=== PATIENT | female | born 1995 | race Caucasian/White ===

== ENCOUNTER 2020-10-15 11:33 | Outpatient (CLI) | payer BC, SELFPAY ==
[2020-10-15 12:40] LABS: Thyroid Stimulating Hormone Reflex 0.68 u/IU/mL (0.36-3.74)
== END 2020-10-15 11:34 | disposition home or self-care (01) ==
LOC: CHSLAB 11:36
PROVIDERS: PCP Nurse Practitioner Family; Visit Provider Nurse Practitioner Family
DX: E03.9 Hypothyroidism, unspecified (principal)
CPT/HCPCS: 36415; 84443

== ENCOUNTER 2021-02-18 23:53 | Emergency (ER) | payer OTHER, SELFPAY ==
--- NOTE | ~2021-02-18 | CT_ITS ---
EXAMINATION: CT brain wo con DATE: 02/19/2021 01:52 INDICATION: Confusion TECHNIQUE: Computed tomography (CT) of the head was performed without intravenous contrast. The mA wa s adjusted according to patient size. Iterative reconstruction technique was employed. Exam dose: 68 1.00 mGy-cm total exam DLP. COMPARISON: None FINDINGS: No intracranial mass lesion or hemorrhage or cerebrovascular accident. Normal martinez-white ma tter differentiation. Normal ventricular size. No midline shift or mass effect effect. No subdural or epidural hematoma. There is polyp or mucous attention cyst along the posterior medial wall of the left maxillary sinus. The included paranasal sinuses and the mastoid air cells are otherwise normally developed and aerated . No fracture or bone destruction of the cranial vault. IMPRESSION: No significant intracranial abnormality Reviewed, dictated and finalized at Location [facility]. Reviewed, dictated and finalized at location A.
[2021-02-19] VITALS: BP 117/77; PULSE 90; RESP 18; TEMP 36.3; O2SAT 99
--- NOTE | 2021-02-19 00:08 | ECG_ITS ---
Measurements Intervals [place] Rate: 89 P: 70 MN: 148 QRS: 48 QRSD: 105 T: 41 QT: 373 QTc: 456 Interpretive Statements SINUS RHYTHM NORMAL ECG Electronically Signed On 02-19-2021 8:06:23 CDT by Estiven Hernández D.O.
[2021-02-19 00:24] LABS: Basophils Absolute Auto 0.03 K/mm3 (0.00-0.10); Basophils Percent Auto 0.3 % (0.0-1.0); Eosinophils Absolute Auto 0.14 K/mm3 (0.02-0.50); Eosinophils Percent Auto 1.6 % (1.0-6.0); Hematocrit 37.7 % (35.0-49.0); Hemoglobin 12.5 g/dL (12.0-15.0); Immature Granulocyte Absolute 0.03 K/mm3 (0.00-0.00); Immature Granulocyte Percent A 0.3 % (0.0-0.0); Lymphocytes Absolute Auto 2.57 K/mm3 (1.10-4.50); Lymphocytes Percent Auto 29.2 % (18.0-42.0); Mean Corpuscular HGB Conc 33.2 g/dL (32.0-36.0); Mean Corpuscular Volume 90.4 fL (78.0-102.0); Mean Platelet Volume 10.1 fl (9.2-11.8); Monocytes Absolute Auto 0.71 K/mm3 (0.10-0.90); Monocytes Percent Auto 8.1 % (2.0-11.0); Neutrophils Absolute Auto 5.3 K/mm3 (1.7-7.2); Neutrophils Percent Auto 60.5 % (50.0-70.0); Platelet Count Result 252 K/mm3 (150-420); Red Blood Count 4.17 M/mm3 (4.20-5.40); Red Cell Distribution Width 11.8 % (11.6-14.4); White Blood Count 8.8 K/mm3 (4.8-10.8)
[2021-02-19 00:47] LABS: Alanine Aminotransferase 27 U/L (14-59); Alkaline Phosphatase 56 U/L (46-116); Anion Gap 12 mmol/L (8-16); Aspartate Amino Transferase 16 U/L (15-37); Bilirubin,Total 0.5 mg/dL (0.00-1.00); Blood Urea Nitrogen 7 mg/dL (7-18); Carbon Dioxide 25 mmol/L (21-32); Chloride 105 mmol/L (98-108); Estimated CRCL calculation 64 ml/min; Estimated Glomerular Filt Rate > 60; Glucose 102 mg/dL (70-99); Osmolality Calculated 292 mOsm/kg (285-295); Potassium 3.5 mmol/L (3.5-5.1); Salicylate 0.3 mg/dL (2.8-20.0); Sodium 142 mmol/L (136-145); Thyroid Stimulating Hormone 2.35 uIU/mL (0.36-3.74); Total Protein 7.9 g/dL (6.4-8.2)
[2021-02-19 00:48] LABS: Acetaminophen < 2 ug/mL (10-30); Ethanol < 3 mg/dL (0-6)
[2021-02-19 01:20] LABS: Add Urine Microscopic? NO; Appearance Urine Clear (Clear); Bilirubin Urine Negative (Negative); Blood Urine Negative (Negative); Color Urine Light Yellow (Yellow); Glucose Urine UA Negative (Negative); Ketones Urine Negative (Negative); Leukocyte Esterase Ur Negative LEU/UL (Negative); Nitrate Urine Negative (Negative); Protein Urine Negative (Negative); Urobilinogen Urine 0.2 mg/dL (0.2-1.0)
[2021-02-19 01:24] LABS: Pregnancy On Board Control Positive; Urine Pregnancy Test Negative
[2021-02-19 01:26] LABS: Amphetamine Screen Urine Negative (Negative); Barbiturate Screen Urine Negative (Negative); Benzodiazepines Screen Urine Negative (Negative); Cannabinoid Screen Urine Negative (Negative); Cocaine Screen Urine Negative (Negative); Methadone Screen Urine Negative (Negative); Opiate Screen Urine Negative (Negative); Phencyclidine Screen Urine Negative (Negative)
--- NOTE | 2021-02-19 01:53 | ED.PSYCH ---
HPI - Psych General Chief Complaint: Psychiatric Symptoms <[place] Ken[place] MD - Last Filed: 02/19/21 07:29> Stated Complaint: Suicidal Ideations <L[place] Ken[place] MD - Last Filed: 02/19/21 07:29> Time Seen by Provider: 02/19/21 01:54 <[place] Ken[place] MD - Last Filed: 02/19/21 07:29> Source: patient and EMS <[place] MD - Last Filed: 02/19/21 07:29> Mode of arrival: EMS <[place] MD - Last Filed: 02/19/21 07:29> Limitations: no limitations <[place] MD - Last Filed: 02/19/21 07:29> History of Present Illness HPI Narrative: 25-year-old woman with history of schizoaffective disorder brought to the emergency department by EMS after she was found wandering aimlessly of the local gas station. EMS stated that she had suicidal ideation but the patient denies it vehemently. She states that she is under the influence of no drugs or alcohol and has had no head injury. She has had psych admissions in the past. Patient states that she was evicted from her home today and found herself several times lost and not knowing where she was. She states that she has family in the [place]. <[place] Ken[place] MD - Last Filed: 02/19/21 07:29> MD complaint: feels depressed <[place] Ken[place] MD - Last Filed: 02/19/21 07:29> Onset (ago): hour(s) <[place] Ken[place] MD - Last Filed: 02/19/21 07:29> Duration: constant <[place] MD - Last Filed: 02/19/21 07:29> History of same: No <[place] MD - Last Filed: 02/19/21 07:29> Relieving factors: none <[place] MD - Last Filed: 02/19/21 07:29> Exacerbating factors: none <[place] MD - Last Filed: 02/19/21 07:29> Context: significant life stressor <[place] MD - Last Filed: 02/19/21 07:29> Associated psychiatric symptoms: depression and suicidal ideation <[place] MD - Last Filed: 02/19/21 07:29> Associated symptoms: denies other symptoms <[place] Ken[place] MD - Last Filed: 02/19/21 07:29> Treatments prior to arrival: none <[place] Ken[place] MD - Last Filed: 02/19/21 07:29> Related Data Home Medications: Home Medications Medication Instructions Recorded Confirmed quetiapine 150 mg tablet,extended 150 mg PO DAILY tablet 02/21/20 02/19/21 release 24 hr escitalopram oxalate 10 mg tablet 10 mg PO DAILY 10/09/20 02/19/21 aripiprazole 30 mg PO DAILY 02/19/21 02/19/21 lithium carbonate 450 mg PO DAILY 02/19/21 02/19/21 norethindrone ac-eth estradiol 1 tablet PO DAILY 02/19/21 02/19/21 [Microgestin 08/01 ()] trazodone 100 mg PO HS 02/19/21 02/19/21 <[place] MD - Last Filed: 02/19/21 07:29> Allergies/Adverse Reactions: Allergies Allergy/AdvReac Type Severity Reaction Status Date / Time aluminum Allergy Mild rash Verified 08/14/20 13:09 <[place] MD - Last Filed: 02/19/21 07:29> Review of Systems Review of Systems: All systems reviewed & are unremarkable except as noted in HPI and below <[place] Ken[place] MD - Last Filed: 02/19/21 07:29> Constitutional: Constitutional: Denies chills and Denies fever(s) <[place] Ken[place] MD - Last Filed: 02/19/21 07:29> Eyes: Eyes: Denies change in vision and Denies photophobia <[place] Ken[place] MD - Last Filed: 02/19/21 07:29> ENT: Denies nasal congestion and Denies sore throat <[place] Ken[place] MD - Last Filed: 02/19/21 07:29> Cardiovascular: Cardiovascular: Denies chest pain and Denies radiating jaw, neck or arm pain <[place] Ken[place] MD - Last Filed: 02/19/21 07:29> Respiratory: Respiratory: Denies cough and Denies dyspnea <[place] Ken[place] MD - Last Filed: 02/19/21 07:29> Gastrointestinal: Gastrointestinal: Denies diarrhea and Denies vomiting <Laek Kenyon MD - Last Filed: 02/19/21 07:29> Genitourinary: Genitourinary: Denies hematuria, Denies nocturia and Denies dysuria <[place]
--- NOTE | 2021-02-19 03:08 | PC.NURSE ---
Pt is restless in room, unable to sleep, pacing at times and then back to bed. Explained to pt we are awaiting Dane from [facility] for evaluation.
[2021-02-19 03:12] VITALS: BP 114/73; PULSE 74; RESP 20; O2SAT 97
[2021-02-19] MEDS: LORazepam (*CRX) 0.5 MG TABLET PO (06:08)
[2021-02-19 06:38] LABS: SARS-CoV-2 Ag Negative (Negative)
--- NOTE | 2021-02-19 07:11 | PC.NURSE ---
Sitter at bedside as per protocol. Report to
--- NOTE | 2021-02-19 07:30 | PC.NURSE ---
Pt pacing around room, pt getting on and off the stretcher, pt restless.
--- NOTE | 2021-02-19 08:43 | PC.NURSE ---
[facility] working on trying to get pt a bed at their facility. [place] called to get more information.
--- NOTE | 2021-02-19 08:45 | PC.NURSE ---
Pt eating breakfast tray
[2021-02-19 09:02] VITALS: BP 117/78; PULSE 90; RESP 18; O2SAT 98
--- NOTE | 2021-02-19 09:19 | PC.NURSE ---
pt to be accepted to [facility] for further psych treatment per Q at [facility].
[2021-02-19 09:45] VITALS: RESP 16; O2SAT 98
== END 2021-02-19 10:00 ==
PROVIDERS: Emergency Provider Emergency Medicine; PCP Nurse Practitioner Family
DX: F25.9 Schizoaffective disorder, unspecified (principal); F41.9 Anxiety disorder, unspecified; Z20.822 Contact with and (suspected) exposure to COVID-19
CPT/HCPCS: 36415; 70450; 80053; 80307; 81003; 81025; 84443; 85025; 87426; 93005; 99285; A9270; C9803

== ENCOUNTER 2021-12-04 15:47 | Outpatient (CLI) | payer OTHER, SELFPAY ==
[2021-12-04 16:49] LABS: Thyroid Stimulating Hormone Reflex 1.14 u/IU/mL (0.36-3.74)
== END 2021-12-04 15:48 | disposition home or self-care (01) ==
LOC: CHSLAB 15:51
PROVIDERS: PCP Nurse Practitioner Family; Visit Provider Nurse Practitioner Family
DX: E03.9 Hypothyroidism, unspecified (principal)
CPT/HCPCS: 36415; 84443

== ENCOUNTER 2024-05-27 08:26 | Outpatient (NON) | payer MEDICARE, SELFPAY ==
[2024-05-27 08:42] LABS: Add Urine Microscopic? NO; Appearance Urine Clear (Clear); Bilirubin Urine Negative (Negative); Blood Urine Negative (Negative); Color Urine Light Yellow (Yellow); Glucose Urine UA Negative (Negative); Ketones Urine Negative (Negative); Leukocyte Esterase Ur Negative LEU/UL (Negative); Nitrate Urine Negative (Negative); Protein Urine Negative (Negative); Specific Grav Ur <= 1.005 (1.010-1.020); Urobilinogen Urine 0.2 mg/dL (0.2-1.0); pH Urine 6.5 (5.0-8.0)
== END 2024-05-27 08:27 | disposition home or self-care (01) ==
LOC: CHSLAB 08:28
PROVIDERS: PCP Nurse Practitioner Family; Visit Provider Nurse Practitioner Family
DX: Z87.898 Personal history of other specified conditions (principal)
CPT/HCPCS: 81003

== ENCOUNTER 2024-12-20 11:00 | Outpatient (NON) | payer MEDICARE, SELFPAY ==
--- NOTE | 2024-12-20 | CY_PTH ---
PATIENT: Kirsty Dyer LOC: [facility] U#:[id number] AGE/SX: 29/F ROOM: RE12/20/[address]: Na Trujillo NP : 1995 BED: DIS: 12/20/2024 SPEC #: [id number] RECD: 12/20/24 13:31 STATUS: SARAH MORENO #: [id number] YADIRA: 12/20/24 00:[address]: Na Trujillo DEPT: [facility] Cytology RECD BY: Karina Donahue MLT, ([facility]) Tissues: A - Pap Smear Procedures: Pap Smear
--- OUTSIDE RECORDS SUMMARY | 2024-12-20 12:23 | XMS_ITS | Referral Summary ---
Author Organization [facility] Address [address] [place] [address] Care Team Providers Care Associate Professor Of Management Name Role Phone Na Trujillo NP Primary Care Provider [phone] Encounters Date Type Department Care Team Description 11/15/2024 3:00 PM CDT Office Visit [facility]ient Care at [address] [address] Melodie Hansen PA Milia (Primary Dx) from Last 3 Months Allergies Active Allergy Reactions Criticality Noted Date Comments Aluminum Rash,Hives Medium 08/09/2018 Sulfa Rash Medium 11/15/2024 Medications No known medications Active Problems Problem Noted Date Diagnosed Date Epistaxis 02/09/2013 Social History Tobacco Use Types Packs/Day Years Used Date Smoking Tobacco: Never Assessed Comments Unknown Sex and Gender Information Value Date Recorded Sex Assigned at Not on file 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 Gender Identity Not on file Sexual Orientation Not on file Last Filed Vital Signs Vital Sign Reading Time Taken Comments Blood Pressure 100/66 11/15/2024 2:53 PM CDT Pulse 90 11/15/2024 2:53 PM CDT Temperature 37.1 C (98.8 F) 11/15/2024 2:53 PM CDT Respiratory Rate 20 11/15/2024 2:53 PM CDT Oxygen Saturation 98% 11/15/2024 2:53 PM CDT Inhaled Oxygen Concentration - - Weight 92.1 kg (203 lb 1.6 oz) 11/15/2024 2:53 P M CDT Height 167.6 cm (5' 6) 03/29/2013 9:13 AM CDT Body Mass Index - - Plan of Treatment Not on file Insurance MEDICARE IDPA AETNA [id number] [place] Care Teams Associate Professor Of Management Relationship Specialty Start Date End Date Na Trujillo NP [address] [place] [address] PCP - General Nurse Practitioner 08/06/22
--- OUTSIDE RECORDS SUMMARY | 2024-12-20 12:23 | XMS_ITS | Clinical Summary ---
Author Organization [facility] Address [address] [place] [address] Care Team Providers Care System Support Developer Name Role Phone Na Trujillo NP Primary Care Provider [phone] Allergies Active Allergy Reactions Criticality Noted Date Comments Aluminum Rash,Hives Medium 08/09/2018 Sulfa Rash Medium 11/15/2024 Medications No known medications Active Problems Problem Noted Date Diagnosed Date Epistaxis 02/09/2013 Encounters Date Type Department Care Team Description 11/15/2024 3:00 PM CDT Office Visit [facility] Convenient Care at [address] [address] Melodie Hansen PA Milia (Primary Dx) from Last 3 Months Social History Tobacco Use Types Packs/Day Years Used Date Smoking Tobacco: Never Assessed Comments Unknown Sex and Gender Information Value Date Recorded Sex Assigned at Not on file 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 Gender Identity Not on file Sexual Orientation Not on file Obstetrics History Last Filed Vital Signs Vital Sign Reading [...] Mass Index - - Plan of Treatment Health Maintenance Due Date Last Done Comments Cervical Cancer Screening 1996 Depression Screening 1996 Hepatitis C Screening 1996 Hepatitis B Screening 2014 Regular Well Visit/Exam 18-64 2014 Covid-19 Vaccine ( season) 2024 09/10/2021, 02/14/2021, 01/24/2021 Influenza Vaccine (Season Ended) 2025 04/22/2022, 04/24/2021, 04/30/2020, Additional history exists DTaP/Tdap/Td Vaccine (3 - Td or Tdap) 10/09/2030 10/09/2020, 08/23/2008 HPV Vaccines Completed 11/23/2009, 01/11, 08/23/2008 Varicella Vaccines Completed 11/23/2009, 02/05/2009 Pneumococcal vaccine <65 Aged Out No longer eligible based on patient's age to complete this topic Insurance MEDICARE IDCA AENA [facility] Care Teams System Support Developer Relationship Specialty Start Date End Date Na Trujillo NP [address] [place] [address] PCP - General Nurse Practitioner 08/06/22
--- OUTSIDE RECORDS SUMMARY | 2024-12-20 12:23 | XMS_ITS | Clinical Summary ---
Author Organization [facility] Address [address] [place] [address] Care Team Providers Care Cw Operator Name Role Phone Mana Espinoza MD Primary Care Provider [phone] Source Comments [facility],non-owned Affiliates and Associated Physician Practices is amultiple site organization consisting of ambulatory clinics and hospital sitesin [place], [place], [place] and [place]. This disclosure is being madepursuant to the Care Everywhere program and may not contain all information available regarding this patient. Last updated 18.[facility] Allergies Active Allergy Reactions Criticality Noted Date Comments Aluminum Rash Medium 10/11/2019 Medications * This document contains information received from the source organization and may not represent a complete record from that organization. * Be aware that medications may not be up to date on this document. Alwaysverify current medications with the patient. Norethindrone Acet-Ethinyl Est (NANNETTE 08/01 PO)Indications:c ontraception Active OXcarbazepine (TRILEPTAL) 150 MG tabletIndication s:Bipolar disorder Take 1 tablet by mouth 2 times daily Reasons: Bipolar disorder 60 tablet 1 0 Active traZODone (DESYREL) 100 MG tabletIndication s:Insomnia Take 1 tablet by mouth nightly as needed for Insomnia Reasons: Trouble Sleeping 30 tablet 1 0 Active ARIPiprazole (ABILIFY) 15 MG tabletIndication s:Mixed Bipolar Affective Disorder Take 1 tablet by mouth at bedtime Reasons: MIXED BIPOLAR AFFECTIVE DISORDER 30 tablet 1 0 Active levothyroxine (SYNTHROID) 75 MCG tabletIndication s:Hypothyroidism Take 1 tablet by mouth once daily Reasons: Underactive Thyroid 30 tablet 1 0 Active clotrimazole (LOTRIMIN AF) 1 % creamIndications :Mucocutaneous Candidiasis Apply to affected area 2 times daily Reasons: [place]ena Infection of Skin and Mouth or Vagina 28 g 0 Active Active Problems Problem Noted Date Diagnosed Date Schizoaffective disorder, bipolar type 0 Deviated nasal septum 07/12/2015 Allergic rhinitis 07/12/2015 Family History Medical History Relation Name Comments Anxiety Disorder Father Asthma Father Depression Father Eczema Father Mental Illness Father Anxiety Disorder Mother Cancer Mother Depression Mother Heart Disease Mother Mental Illness Mother Anxiety Disorder Sister Depression Sister Mental Illness Sister Relation Name Status Comments Father Mother Sister Social History Tobacco Use Types Packs/Day Years Used Date Smoking Tobacco: Never Smokeless Tobacco: Never Alcohol Use Standard Drinks/Week Comments Not Currently 0 (1 standard drink = 0.6 oz pur e alcohol) Comments No Sex and Gender Information Value Date Recorded Sex Assigned at Not on file 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 Gender Identity Not on file Sexual Orientation Not on file Last Filed Vital Signs Vital Sign Reading Time Taken Comments Blood Pressure 120/72 10/21/2019 8:52 AM CDT Pulse 90 10/21/2019 8:52 AM CDT Temperature 36.3 C (97.3 F) 10/21/2019 8:52 AM CDT Respiratory Rate 16 10/21/2019 8:52 AM CDT Oxygen Saturation 95% 10/21/2019 8:52 AM CDT Inhaled Oxygen Concentration - - Weight 72.6 kg (160 lb) 10/18/2019 9:58 AM CDT Height 165.1 cm (5' 5) 10/12/2019 10:45 AM CDT Body Mass Index 26.63 10/12/2019 10:45 AM CDT Plan of Treatment Health Maintenance Due Date Last Done Comments HIV SCREENING 2011 HEPATITIS C SCREENING 05/24/2014 DTAP/TDAP/TD VACCINES (1 - Tdap) 2015 HEPATITIS B VACCINE (1 of 3 - 19+ 3-dose series) 2015 COVID-19 VACCINE (2023-2 5 season) 2024 INFLUENZA VACCINE (Season Ended) 2025 05/04/20 17 ZOSTER VACCINE (1 of 2) 2046 HIB VACCINE Aged Out No longer eligi ble based on patient's age to complete this topic HPV VACCINE Aged Out No longer eligi ble based on patient's age to complete this topic MENINGOCOCCAL (Group B) VACC INE SHARED DECISION-MAKING Aged Out No longer eligibl e based on patient's age to complete this topic MENINGOCOCCAL GROUPS A/C/Y/W VACCINE Aged Out No longer eligible b ased on patient's age to complete this topic PNEUMOCOCCAL VACCINE Aged Out No long er eligible based on patient's age to complete this topic Insurance ANTHEM ANTHEM Advance Directives * Full Code (Latest Code Status on File) Date Activated Date Inactivated Comments 10/12/2019 8:20 AM 10/21/2019 3:16 PM Care Teams Cw Operator Relationship Specialty Start Date End Date Mana Espinoza MD [address] [place] [address] PCP - General 05/14/15
== END 2024-12-20 11:01 | disposition home or self-care (01) ==
LOC: CHSLAB 11:02
PROVIDERS: PCP Nurse Practitioner Family; Visit Provider Nurse Practitioner Family
DX: Z12.4 Encounter for screening for malignant neoplasm of cervix (principal); Z11.8 Encounter for screening for other infectious and parasitic diseases
CPT/HCPCS: 87491; 87591; 88175; G0145

== ENCOUNTER 2024-12-28 13:52 | Outpatient (CLI) | payer MEDICARE, MEDICAID, SELFPAY ==
--- NOTE | ~2024-12-28 | US_ITS ---
EXAM: PELVIC ULTRASOUND HISTORY: N91.2 - Amenorrhea, unspecified COMPARISON: None. FINDINGS: UTERUS: 7.0 x 3.4 x 2.3 cm. The uterus is anteverted and anteflexed. The endometrial complex measures 10.7 mm. The myometrium is heterogeneous in echogenicity. RIGHT OVARY: Despite prolonged interrogation the right ovary was not visualized LEFT OVARY: Despite prolonged interrogation, the left ovary was not visualized. Trace free fluid is identified within the left adnexa IMPRESSION: Heterogeneity of the myometrium suggesting adenomyosis. Trace free fluid within the left adnexa. Despite prolonged interrogation, neither ovary was visualized. Reviewed, dictated and finalized at location A.
[2024-12-28 14:56] LABS: Free T4 Free Thyroxine 0.94 ng/dL (0.78-2.19)
[2024-12-28 15:10] LABS: Thyroid Stimulating Hormone 0.697 uIU/mL (0.465-4.680)
--- OUTSIDE RECORDS SUMMARY | 2024-12-28 15:41 | XMS_ITS | Referral Summary ---
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
--- OUTSIDE RECORDS SUMMARY | 2024-12-28 15:41 | XMS_ITS | Clinical Summary ---
Author Organization [facility] Address [address] [place] [address] Care Team Providers Care Instrumentation Supervisor Name Role Phone Na Trujillo NP Primary Care Provider [phone] Allergies Active Allergy Reactions Criticality Noted Date Comments Aluminum Rash,Hives Medium 08/09/2018 Sulfa Rash Medium 11/15/2024 Medications No known medications Active Problems Problem Noted Date Diagnosed Date Epistaxis 02/09/2013 Encounters Date Type Department Care Team Description 11/15/2024 3:00 PM CDT Office Visit [facility] Convenient Care at [address] [address] Melodie Hansen PA Milia (Primary Dx) from Last 3 Months Social History Tobacco Use Types Packs/Day Years Used Date Smoking Tobacco: Never Assessed Comments Unknown Sex and Gender Information Value Date Recorded Sex Assigned at Not on file 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
--- OUTSIDE RECORDS SUMMARY | 2024-12-28 15:41 | XMS_ITS | Clinical Summary ---
Author Organization [facility] [employer] Address [address] [place] [address] Care Team Providers Care Experimental Outboard Motors Mechanic Name Role Phone Mana Espinoza MD Primary Care Provider [phone] Source Comments [facility] [employer],non-owned Affiliates and Associated Physician Practices is amultiple site organization consisting of ambulatory clinics and hospital sitesin [place], [place], [place] and [place]. This disclosure is being madepursuant to the Care Everywhere program and may not contain all information available regarding this patient. Last updated 18.[facility] [employer] Allergies Active Allergy Reactions Criticality Noted Date [...] on file Legal Sex Female 1:43 PM RN CLINICAL REVIEW Gender Identity Not on file Sexual Orientation [...] 8:20 AM 10/21/2019 3:16 PM Care Teams Experimental Outboard Motors Mechanic Relationship Specialty Start Date End Date Mana Espinoza MD [address] [place] [address] PCP - General 05/14/15
[2024-12-29 17:44] LABS: Total Triiodothyronine (T3) 70 ng/dL (76-181)
[2024-12-30 05:22] LABS: DHEA-Sulfate 338 mcg/dL (14-349); FSH 5.6 mIU/mL; LH 6.6 mIU/mL
[2024-12-31 22:34] LABS: Testosterone Total 32 ng/dL (2-45)
== END 2024-12-28 13:53 | disposition home or self-care (01) ==
LOC: CHSIMG 13:56
PROVIDERS: PCP Nurse Practitioner Family; Visit Provider Nurse Practitioner Family
DX: N91.2 Amenorrhea, unspecified (principal); E03.9 Hypothyroidism, unspecified; R79.89 Other specified abnormal findings of blood chemistry
CPT/HCPCS: 36415; 76830; 76856; 82627; 83001; 83002; 84146; 84402; 84403; 84439; 84443; 84480

== ENCOUNTER 2025-03-07 10:01 | Outpatient (CLI) | payer MEDICARE, MEDICAID, SELFPAY ==
--- OUTSIDE RECORDS SUMMARY | 2025-03-07 10:33 | XMS_ITS | Clinical Summary ---
Author Organization [facility] Address [address] [place] [address] Care Team Providers Care Lockstitch Cup Setter Name Role Phone Na Trujillo NP Primary Care Provider [phone] Allergies Active Allergy Reactions Criticality Noted Date Comments Aluminum Rash,Hives Medium 08/09/2018 Sulfa Rash Medium 11/15/2024 Medications No known medications Active Problems Problem Noted Date Diagnosed Date Epistaxis 02/09/2013 Social History Tobacco Use Types Packs/Day Years Used Date Smoking Tobacco: Never Assessed Comments Unknown Sex and Gender Information Value Date Recorded Sex Assigned at Not on file 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 Gender Identity Not on file Sexual Orientation [...] season) 2024 09/10/2021, 02/14/2021, 01/24/2021 Influenza Vaccine (#1) 2025 , 04/24/2021, 04/30/2020, Additional history exists DTaP/Tdap/Td Vaccine (3 - Td or Tdap) 10/09/2030 10/09/2020, 08/23/2008 HPV Vaccines Completed 11/23/2009, 01/11, 08/23/2008 Varicella Vaccines Completed 11/23/2009, 02/05/2009 Pneumococcal vaccine <65 Aged Out No longer eligible based on patient's age to complete this topic Insurance MEDICARE IDND AETNA [facility] Care Teams Lockstitch Cup Setter Relationship Specialty Start Date End Date Na Trujillo NP [address] [place] [address] PCP - General Nurse Practitioner 08/06/22
--- OUTSIDE RECORDS SUMMARY | 2025-03-07 10:33 | XMS_ITS | Clinical Summary ---
Author Organization [facility] [employer] Address [address] [place] [address] Care Team Providers Care Nutrition Professor Name Role Phone Mana Espinoza MD Primary Care Provider [phone] Source Comments [facility] [employer],non-owned Affiliates and Associated Physician Practices is amultiple site organization consisting of ambulatory clinics and hospital sitesin [place], [place], [place] and [place]. This disclosure is being madepursuant to the Care Everywhere program and may not contain all information available regarding this patient. 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
== END 2025-03-07 10:02 | disposition home or self-care (01) ==
PROVIDERS: PCP Nurse Practitioner Family; Visit Provider Nurse Practitioner Family
DX: N91.2 Amenorrhea, unspecified (principal)
CPT/HCPCS: 84146